=== PATIENT | male | born 1965 | race Caucasian/White ===

== ENCOUNTER → 2019-07-06 | Emergency (ER) | payer OTHER ==
[~2019-07-06] VITALS: Ht 170.2 cm; Wt 68.9 kg
--- NOTE | 2019-07-06 15:45 | NUR ---
BIBRA FOUND OUTSIDE 12/17 BECAME BELLIGERENT WHEN TOLD TO LEAVE, STRONG ETOH BREATH. PATIENT SLEEPY BUT AROUSABLE, BREATHING EVEN AND UNLABORED, NO SOB NOTED, NEEDS ATTENDED. KEPT COMFORTABLE.
--- NOTE | 2019-07-06 16:02 | NUR ---
urine collected and sent to lab
[2019-07-06 16:08] LABS: APPEARANCE,URINE Clear (CLEAR); BILIRUBIN,URINE Negative (NEGATIVE); BLOOD, URINE Negative Ery/uL (NEGATIVE); COLOR,URINE Yellow (YELLOW); KETONES,URINE Trace (NEGATIVE); LEUKOCYTE ESTERASE ,URINE Negative (NEGATIVE); NITRITE, URINE Negative (NEGATIVE); PH,URINE 5.5 (5.0-8.0); PROTEIN,URINE Negative (NEGATIVE); UGLUCOSE Negative (NEGATIVE); UROBILINOGEN,URINE 0.2 EU/dL (0.2)
[2019-07-06 16:27] LABS: RBC,URINE 0-2 /HPF (0-2); WBC,URINE 0-2 /HPF (0-3)
[2019-07-06 16:28] LABS: BACTERIA,URINE Few /HPF (None Seen); SQUAMOUS EPITHELIAL CELL,UR Few /HPF (None Seen)
[2019-07-06 16:34] LABS: BASOPHILS # (AUTO) 0.1 /CMM (0.0-0.2); EOSINOPHILS % (AUTO) 0.6 % (0.0-6.0); HEMATOCRIT 47 % (39-51); HEMOGLOBIN 15.6 g/dL (13.5-17.5); LYMPHOCYTES # (AUTO) 1.6 /CMM (0.8-4.8); LYMPHOCYTES % (AUTO) 20.7 % (20.0-44.0); MEAN CORPUSCULAR HGB CONC 34 g/dl (31.0-36.0); MEAN CORPUSCULAR VOLUME 98 fL (80-96); MONOCYTES # (AUTO) 0.5 /CMM (0.1-1.30); MONOCYTES % (AUTO) 6.5 % (2.0-12.0); NEUTROPHILS # (AUTO) 5.4 /CMM (1.8-8.9); NEUTROPHILS % (AUTO) 71.2 % (43.0-81.0); PLATELET COUNT (AUTO) 329 /CMM (150-450); RED BLOOD CELL COUNT(AUTO) 4.74 MIL/uL (4.5-6.0); WHITE BLOOD COUNT (AUTO) 7.6 K/uL (4.3-11.0)
[2019-07-06 16:44] LABS: CALCIUM, SERUM 8.9 mg/dL (8.5-10.1); CARBON DIOXIDE 25 mmol/L (21-32); CHLORIDE 106 mmol/L (98-107); GLUCOSE 83 mg/dL (74-106); SODIUM SERUM 147 mmol/L (136-145); UREA NITROGEN, BLOOD 9 mg/dL (7-18)
[2019-07-06 16:54] LABS: ACETAMINOPHEN < 2 ug/ml (10-30); ALANINE AMINOTRANSFERASE 34 U/L (12-78); ALBUMIN 3.4 g/dL (3.4-5.0); ALCOHOL, BLOOD 373 mg/dL (0-0); ALKALINE PHOSPHATASE 88 U/L (46-116); ASPARTATE AMINOTRANSFERASE 56 U/L (15-37); BILIRUBIN,DIRECT 0.1 mg/dL (0.0-0.2); BILIRUBIN,TOTAL 0.3 mg/dL (0.2-1.0); SALICYLATE < 2.8 mg/dL (2.8-20.0); TOTAL PROTEIN, SERUM 7.2 g/dL (6.4-8.2)
--- NOTE | 2019-07-06 17:00 | NUR ---
PATIENT AMBULATES TO RESTROOM, NO DISTRESS NOTED. VITALS STABLE.
[2019-07-06 17:24] VITALS: BP 133/76
== END | disposition home or self-care (01) ==
LOC: ER 15:19
DX: F10.129 Alcohol abuse with intoxication, unspecified (principal); F14.90 Cocaine use, unspecified, uncomplicated; Z60.2 Problems related to living alone; Y90.8 Blood alcohol level of 240 mg/100 ml or more
CPT/HCPCS: 36415; 80048; 80076; 80305; 80307; 80329; 81001; 85025; 99283; G0480; 81000-TC

== ENCOUNTER 2021-05-25 07:51 | Inpatient (IN) | payer OTHER ==
[~2021-05-25] VITALS: Ht 172.7 cm; Wt 85.3 kg
--- NOTE | 2021-05-25 07:51 | NUR ---
PT [address]IB[address] C/O NAUSEA/VOMTING STARTED LAST NIGHT. +ALCOHOL INTAKE YESTERDAY. PT IS AAOX4, NOT IN RESPIRATORY DISTRESS, HOOKED TO SHIP'S COOK, KEPT RESTED AND COMFORTABLE. WILL CONTINUE TO MONITOR.
--- NOTE | 2021-05-25 08:16 | NUR ---
SEEN AND EXAMINED BY .
[2021-05-25] MEDS ORDERED: ONDANSETRON HCL/PF 4 MG/2 ML VIAL ONE ×3 (08:18→10:26)
--- NOTE | 2021-05-25 08:20 | NUR ---
IV LINE ESTABLISHED BLOOD DRAWN AND SENT TO LAB.
[2021-05-25] MEDS ORDERED: IV NS 0.9% 500 ML BAG IV ONE (08:30)
[2021-05-25] MEDS ORDERED: ONDANSETRON HCL/PF 4 MG/2 ML VIAL IVP ONE ×2 (08:30→10:30)
[2021-05-25 08:34] LABS: RED BLOOD CELL COUNT(AUTO) 6.13 MIL/uL (4.5-6.0)
[2021-05-25 08:52] LABS: BASOPHILS # (AUTO) 0.2 K/uL (0.0-0.2); BASOPHILS % (AUTO) 0.7 % (0.0-2.0); HEMOGLOBIN 18.8 g/dL (13.5-17.5); LYMPHOCYTES # (AUTO) 1.6 K/uL (0.8-4.8); LYMPHOCYTES % (AUTO) 7.2 % (20.0-44.0); MEAN CORPUSCULAR HGB CONC 31 g/dl (31.0-36.0); MEAN CORPUSCULAR VOLUME 98 fL (80-96); MONOCYTES # (AUTO) 1.6 K/uL (0.1-1.30); MONOCYTES % (AUTO) 7.2 % (2.0-12.0); NEUTROPHILS # (AUTO) 18.5 K/uL (1.8-8.9); NEUTROPHILS % (AUTO) 84.9 % (43.0-81.0); PLATELET COUNT (AUTO) 439 K/uL (150-450); WHITE BLOOD COUNT (AUTO) 21.9 K/uL (4.3-11.0)
[2021-05-25 08:56] LABS: HEMATOCRIT 60 % (39-51)
[2021-05-25] MEDS ORDERED: IV NS 0.9% 1,000 ML BAG IV ONE ×2 (09:00→10:00)
--- NOTE | 2021-05-25 09:20 | NUR ---
PT IS WHEELED TO CT SCAN VIA [facility].
[2021-05-25 09:26] LABS: ALBUMIN 4.4 g/dL (3.4-5.0); BILIRUBIN,DIRECT 0.1 mg/dL (0.0-0.2); BILIRUBIN,TOTAL 0.4 mg/dL (0.2-1.0); CALCIUM, SERUM 9.1 mg/dL (8.5-10.1); CREATININE 2.1 mg/dL (0.6-1.3); POTASSIUM 4.7 mmol/L (3.5-5.1); TOTAL PROTEIN, SERUM 9.3 g/dL (6.4-8.2)
[2021-05-25] MEDS ORDERED: PIPERACILLIN /TAZOBACTAM 3.375 G in IV D5W 50 ML IV ONE (10:00)
[2021-05-25 10:17] LABS: ABG BASE EXCESS -22.8 mmol/L; ABG PCO2 21.8 mmHg (35.0-45.0); ABG PH 7.054 (7.350-7.450); ABG PO2 91.4 mmHg (75.0-100.0); COHb 0.3 % (0.5-1.5); MetHb 0.6 % (0.0-1.5); O2Hb 94.3 % (94.0-97.0); SITE, ABG Right Radial; VENT MODE, BG room air
[2021-05-25] MEDS ORDERED: MORPHINE SULFATE INJ 4 MG/ML DISP.SYRIN ONE (10:26)
--- NOTE | 2021-05-25 10:29 | NUR ---
SPOKED TO [facility] [employer] FOR MED POINT WILL CALL BACK FOR UPDATE.
[2021-05-25] MEDS ORDERED: MORPHINE SULFATE INJ 2 MG/ML DISP.SYRIN IV ONE (10:30)
--- NOTE | 2021-05-25 10:55 | NUR ---
[employer] WORKRO[employer] CLERK OF [facility] GAVE AUTH FOR ADMISSION.
[2021-05-25 11:14] LABS: LYMPHOCYTES % (MANUAL) 6 % (16-48); MONOCYTES % (MANUAL) 3 % (0-11.0); NEUTROPHILS % (MANUAL) 91 (42-76)
[2021-05-25] MEDS ORDERED: HYDROCODONE/APAP 10/325MG TABLET PO PRN (11:30)
[2021-05-25] MEDS ORDERED: ONDANSETRON HCL/PF 4 MG/2 ML VIAL IVP PRN (11:30)
[2021-05-25] MEDS ORDERED: MAGNESIUM HYDROXIDE 30 ML UDC PO PRN (11:30)
[2021-05-25] MEDS ORDERED: Z GUARD REMEDY 2 OZ OINT TP PRN (11:30)
[2021-05-25] MEDS ORDERED: ACETAMINOPHEN 325 MG TABLET PO PRN (11:30)
[2021-05-25] MEDS ORDERED: MAG HYDROX/AL HYDROX/SIMETH 30 ML UDC PO PRN (11:30)
--- NOTE | 2021-05-25 11:31 | NUR ---
called nursing sup regarding pt bed
--- NOTE | 2021-05-25 11:58 | NUR ---
ROOM 111-2
[2021-05-25] MEDS: PANTOPRAZOLE 40 MG VIAL IV SCH ×2 (12:00→21:27)
--- NOTE | 2021-05-25 12:02 | NUR ---
REPORT GIVEN TO MONY BARRERA FOR EMELI.
[2021-05-25] MEDS ORDERED: PANTOPRAZOLE 40 MG VIAL ONE (12:21)
--- NOTE | 2021-05-25 13:15 | NUR ---
RN ADMITTING NOTE PT IN ROOM 111-2. ORIENTED TO HOSPITAL AND ROOM, TAUGHT HOW TO USE CALL LIGHT. BED IN SAFE POSITION. SIDE RAILS RAISED. ADMISSION ASSESSMENTS TO BE DONE. NO SKIN ISSUES PRESENT. NO S/S OF DISTRESS. WILL CONTINUE TO MONITOR.
[2021-05-25 13:45] VITALS: BP 130/78
[2021-05-25] MEDS: PIPERACILLIN /TAZOBACTAM 3.375 G in IV D5W 50 ML IV SCH ×3 (14:13→23:54)
[2021-05-25 16:00] VITALS: BP 136/84
--- NOTE | 2021-05-25 19:10 | NUR ---
RN NOTES RECEIVED PATIENT IN BED WATCHING TV. A/O X4 ABLE TO MAKE NEEDS KNOWN. PATIENT NOT IN DISTRESS NO SOB NOTED AT THIS TIME. WITH IV ACCESS AT R HAND #20 PATENT FLUSHES WELL. WITH ONGOING IVF OF NS @ 100CC/HR TOLERATING WELL. VITAL SIGNS TAKEN AND RECORDED. ALL SAFETY MEASURES IN PLACE. HOB ELEVATED, CALL LIGHT WITHIN REACH. WILL CLOSELY MONITOR THE PATIENT.
--- NOTE | 2021-05-25 19:46 | NUR ---
RN CLOSING NOTE REPORT GIVEN TO NIGHT NURSE FOR EMELI
[2021-05-25 20:00] VITALS: BP 132/81
[2021-05-25] MEDS ORDERED: SODIUM BICARBONATE SYR 50 MEQ/50 ML DISP.SYRIN IV ONE (20:00)
[2021-05-25] MEDS ORDERED: LORAZEPAM INJ 2 MG/ML VIAL IV PRN (20:30)
--- NOTE | 2021-05-25 20:50 | NUR ---
RN NOTES CALLED RT FOR ABG ORDERED. WILL CONTINUE TO MONITOR. PATIENT STILL ON SINUS RHYTHM.
[2021-05-25 22:52] LABS: ABG BASE EXCESS 1.6 mmol/L; ABG OXYGEN SATURATION 94.7 % (92.0-98.5); ABG PCO2 38.2 mmHg (35.0-45.0); ABG PH 7.443 (7.350-7.450); ABG PO2 69.3 mmHg (75.0-100.0); AaDO2 34.7 mmHg; COHb 0.6 % (0.5-1.5); MetHb 0.2 % (0.0-1.5); O2Hb 93.9 % (94.0-97.0); SITE, ABG Right Radial; VENT MODE, BG RA
--- NOTE | 2021-05-25 23:00 | NUR ---
RT abg done. results given to tony taylor
[2021-05-26] VITALS: BP 113/71
[2021-05-26] MEDS: IV NS 0.9% 1,000 ML IV PRN ×2 (02:48→14:23)
[2021-05-26 04:00] VITALS: BP 107/65
[2021-05-26] MEDS: PIPERACILLIN /TAZOBACTAM 3.375 G in IV D5W 50 ML IV SCH ×3 (05:23→17:37)
--- NOTE | 2021-05-26 06:51 | NUR ---
RN NOTES PATIENT REMAINS STABLE THE SHIFT NO SOB NO DISTRESS. ALL DUE MEDS GIVEN ORDERED. PATIENT HAS NO EPISODE OF NAUSEA OR VOMITING DURING THIS SHIFT. STILL ON CONTINOUS IV NS @100CC/HR TOLERATING WELL. ALL SAFETY MEASURES IN PLACE AT ALL TIMES. CALL LIGHT WITHIN REACH. HOB ELEVATED. BED ON LOWEST POSITION AND LOCKED. PATIENT IS FOR MRI OF SPINE WITH OUT CONTRAST CONSENT @ CHART. PATIENT STILL ON NPO BUT OKAY WITH ICE CHIPS. FREQUENT VISUAL MONITORING RENDERED. WILL CONTINUE TO MONITOR.
[2021-05-26 07:18] LABS: BASOPHILS # (AUTO) 0.1 K/uL (0.0-0.2); BASOPHILS % (AUTO) 0.7 % (0.0-2.0); EOSINOPHILS % (AUTO) 0.4 % (0.0-6.0); HEMATOCRIT 41 % (39-51); LYMPHOCYTES % (AUTO) 10.2 % (20.0-44.0); MEAN CORPUSCULAR HGB CONC 34 g/dl (31.0-36.0); MEAN CORPUSCULAR VOLUME 92 fL (80-96); MONOCYTES # (AUTO) 0.7 K/uL (0.1-1.30); MONOCYTES % (AUTO) 7.3 % (2.0-12.0); NEUTROPHILS # (AUTO) 7.8 K/uL (1.8-8.9); NEUTROPHILS % (AUTO) 81.4 % (43.0-81.0); PLATELET COUNT (AUTO) 194 K/uL (150-450); RED BLOOD CELL COUNT(AUTO) 4.44 MIL/uL (4.5-6.0); WHITE BLOOD COUNT (AUTO) 9.6 K/uL (4.3-11.0)
[2021-05-26 07:49] LABS: ALBUMIN 2.8 g/dL (3.4-5.0); BILIRUBIN,DIRECT 0.2 mg/dL (0.0-0.2); BILIRUBIN,TOTAL 0.8 mg/dL (0.2-1.0); CALCIUM, SERUM 7.5 mg/dL (8.5-10.1); CREATININE 1.2 mg/dL (0.6-1.3); MAGNESIUM 1.9 mg/dL (1.8-2.4); PHOSPHORUS 2.5 mg/dL (2.5-4.9); POTASSIUM 3.6 mmol/L (3.5-5.1); TOTAL PROTEIN, SERUM 5.8 g/dL (6.4-8.2)
[2021-05-26 08:00] VITALS: BP 120/80
[2021-05-26] MEDS: PANTOPRAZOLE 40 MG VIAL IV SCH ×2 (08:36→21:01)
--- NOTE | 2021-05-26 09:56 | NUR ---
RN NOTE PT STATED HE POOPED HIS R KNEE WHILE REPOSITIONING IN BED. PAIN 2/10. ABLE TO MOVE R KNEE WITH LIMITED RANGE. KEO STEVENS NOTIFIED. R KNEE XRAY ORDERED.
[2021-05-26 12:00] VITALS: BP 124/73
[2021-05-26] MEDS ORDERED: HYDROCODONE/APAP 10/325MG TABLET PO PRN (14:00)
[2021-05-26] MEDS ORDERED: HYDROMORPHONE 1 MG/1 ML DISP.SYRIN IV PRN (14:00)
--- NOTE | 2021-05-26 14:00 | NUR ---
RN NOTE PATIENT SEEN BY KEO STEVENS, UPDATED REGARDING PATIENT CURRENT CONDITION.
[2021-05-26 16:00] VITALS: BP 126/73
--- NOTE | 2021-05-26 19:00 | NUR ---
EN NOTE RN NOTE PT AWAKE, ALERT/OX4. IN NO ACUTE DISTRESS. IVF INFUSING WELL TO LEFT HAND. SR ON MONITOR. DIET ADVANCED TO CLEARS. TOLERATING WELL. NO S/SX OF GIB REPORTED. SAFETY MEASURES OBSERVED. CALL LIGHT WITHIN REACH. WILL ENDORSE CARE TO NOC RN.
[2021-05-26 20:00] VITALS: BP 108/64
[2021-05-27] VITALS (7 sets, daily range): BP systolic 108–146; BP diastolic 68–90
[2021-05-27] MEDS: PIPERACILLIN /TAZOBACTAM 3.375 G in IV D5W 50 ML IV SCH ×5 (00:56→23:27)
[2021-05-27] MEDS: IV NS 0.9% 1,000 ML IV PRN (07:25)
--- NOTE | 2021-05-27 07:25 | NUR ---
TONGER OPENING NOTES RECEIVED PT ON BED, AWAKE, A/O X4, ABLE TO MAKE NEEDS KNOWN. NO SIGNS OF ACUTE DISTRESS NOTED. ON ROOM AIR, TOLERATING WELL, BREATHING EVEN AND UNLABORED. ON TELE MONITOR SB @57. IV ACCESS ON LEFT HAND INTACT AND PATENT. NO C/O PAIN OR DISCOMFORT AT THIS TIME. SAFETY MEASURES IN PLACE. BED LOCKED AND IN LOWEST POSITION. SR UP X2, CALL LIGHT PLACED WITHIN EASY REACH. WILL CONTINUE TO MONITOR.
[2021-05-27] MEDS: PANTOPRAZOLE 40 MG VIAL IV SCH ×2 (08:15→21:35)
[2021-05-27 10:29] LABS: BASOPHILS # (AUTO) 0.1 K/uL (0.0-0.2); BASOPHILS % (AUTO) 1.1 % (0.0-2.0); EOSINOPHILS % (AUTO) 1.3 % (0.0-6.0); HEMATOCRIT 38 % (39-51); LYMPHOCYTES # (AUTO) 0.8 K/uL (0.8-4.8); LYMPHOCYTES % (AUTO) 12.3 % (20.0-44.0); MEAN CORPUSCULAR HGB CONC 34 g/dl (31.0-36.0); MEAN CORPUSCULAR VOLUME 92 fL (80-96); MONOCYTES # (AUTO) 0.5 K/uL (0.1-1.30); MONOCYTES % (AUTO) 7.1 % (2.0-12.0); NEUTROPHILS % (AUTO) 78.2 % (43.0-81.0); PLATELET COUNT (AUTO) 164 K/uL (150-450); RED BLOOD CELL COUNT(AUTO) 4.14 MIL/uL (4.5-6.0); WHITE BLOOD COUNT (AUTO) 6.5 K/uL (4.3-11.0)
[2021-05-27 10:37] LABS: CALCIUM, SERUM 7.7 mg/dL (8.5-10.1); POTASSIUM 3.2 mmol/L (3.5-5.1)
--- NOTE | 2021-05-27 13:57 | NUR ---
RN NOTES SEEN AND EXAMINED BY KEO STEVENS NP WITH ORDER TO UPGRADE DIET, CARRIED OUT.
[2021-05-27] MEDS ORDERED: POTASSIUM CHLORIDE 20 MEQ POWDER PACKET PO ONE (15:30)
--- NOTE | 2021-05-27 18:54 | NUR ---
MS RN CLOSING NOTES PT ON BED, AWAKE, A/O X4, ABLE TO MAKE NEEDS KNOWN. NO SIGNS OF ACUTE DISTRESS NOTED. ON ROOM AIR, TOLERATING WELL, BREATHING EVEN AND UNLABORED. IV ACCESS ON LEFT HAND #20G SL, INTACT AND PATENT. NO C/O PAIN OR DISCOMFORT AT THIS TIME. ALL DUE MEDS GIVEN, TOLERATED WELL. SAFETY MEASURES IN PLACE. BED LOCKED AND IN LOWEST POSITION. SR UP X2, CALL LIGHT PLACED WITHIN EASY REACH. WILL ENDORSE TO NEXT SHIFT.
--- NOTE | 2021-05-27 19:30 | NUR ---
RN OPENING NOTES RECEIVED PATIENT IN BED ALERT, ORIENTED X4, VERBALLY RESPONSIVE. NO SOB, NO CHEST CONGESTION, BREATHING EVEN AND UNLABORED. IV ACCESS ON LT HAND #20 G INTACT AND PATENT. NO S/S OF INFILTRATIONS. ON ROOM AIR. NO C/O PAIN OR DISCOMFORT. NO ACUTE DISTRESS. AMBULATORY WITH STEADY GAIT. ALL SAFETY MEASURES ON PLACE. BED IN LOW POSITION AND LOCKED. PLACE CALL LIGHT WITH IN REACH. WILL CONTINUE TO MONITOR
[2021-05-28 02:44] LABS: OCCULT BLOOD STOOL NEGATIVE (NEGATIVE)
[2021-05-28 04:00] VITALS: BP 139/88
[2021-05-28 04:13] VITALS: BP 139/88
[2021-05-28] MEDS: PIPERACILLIN /TAZOBACTAM 3.375 G in IV D5W 50 ML IV SCH ×2 (05:49→11:11)
--- NOTE | 2021-05-28 06:30 | NUR ---
RN CLOSING NOTES: PATIENT IN BED ALERT, ORIENTED X4, VERBALLY RESPONSIVE. BREATHING EVEN AND UNLABORED. ALL DUE MEDS GIVEN ORDER. IV ACCESS ON LT HAND #20 G INTACT AND PATENT. NO S/S OF INFILTRATIONS. ON ROOM AIR, O2 SAT 98%. NO C/O PAIN OR DISCOMFORT. NO ACUTE DISTRESS. AMBULATORY WITH STEADY GAIT. ALL SAFETY MEASURES ON PLACE. BED IN LOW POSITION AND LOCKED. PLACE CALL LIGHT WITH IN REACH. WILL ENDORSE TO MORNING SHIFT NURSE.
[2021-05-28 06:45] LABS: POTASSIUM 3.3 mmol/L (3.5-5.1)
[2021-05-28 07:07] LABS: BASOPHILS # (AUTO) 0.1 K/uL (0.0-0.2); BASOPHILS % (AUTO) 1.9 % (0.0-2.0); EOSINOPHILS % (AUTO) 2.5 % (0.0-6.0); HEMATOCRIT 39 % (39-51); HEMOGLOBIN 13.3 g/dL (13.5-17.5); LYMPHOCYTES % (AUTO) 16.1 % (20.0-44.0); MEAN CORPUSCULAR HGB CONC 34 g/dl (31.0-36.0); MEAN CORPUSCULAR VOLUME 92 fL (80-96); MONOCYTES # (AUTO) 0.5 K/uL (0.1-1.30); MONOCYTES % (AUTO) 7.4 % (2.0-12.0); NEUTROPHILS # (AUTO) 4.7 K/uL (1.8-8.9); NEUTROPHILS % (AUTO) 72.1 % (43.0-81.0); PLATELET COUNT (AUTO) 183 K/uL (150-450); RED BLOOD CELL COUNT(AUTO) 4.25 MIL/uL (4.5-6.0); WHITE BLOOD COUNT (AUTO) 6.4 K/uL (4.3-11.0)
--- NOTE | 2021-05-28 08:03 | NUR ---
RN OPENING NOTES RECEIVED PATIENT IN BED ALERT, ORIENTED X4, VERBALLY RESPONSIVE. NO SOB, NO CHEST CONGESTION, BREATHING EVEN AND UNLABORED. IV ACCESS ON LT HAND #20 G INTACT AND PATENT. NO S/S OF INFILTRATIONS. ON ROOM AIR. NO C/O PAIN OR DISCOMFORT. NO ACUTE DISTRESS. AMBULATORY WITH STEADY GAIT. ALL SAFETY MEASURES RENDERED. BED IN LOWEST POSITION AND LOCKED. CALL LIGHT WITHIN REACH. WILL CONTINUE TO MONITOR.
[2021-05-28] MEDS: PANTOPRAZOLE 40 MG VIAL IV SCH (08:26)
[2021-05-28] MEDS ORDERED: POTASSIUM CHLORIDE 20 MEQ POWDER PACKET PO SCH (10:00)
[2021-05-28 12:00] VITALS: BP 112/82
--- NOTE | 2021-05-28 13:52 | NUR ---
DC NOTES PT DC'S TO HOME. BROTHER PICKED UP PT. DC INSTRUCTIONS GIVEN AND EXPLAINED TO PT. VERBALIZED UNDERSTANDING. ALL PAPERWORK SIGNED AND COMPLETED. ALL BELONGINGS SENT. IV REMOVED, NO COMPLICATIONS NOTED. PT LEFT IN STABLE CONDITION.
--- NOTE | 2021-05-28 14:34 | NUR ---
SS Consult: SS consult for homeless, alcohol abuse. Pt. Is a 55-year-old male. Pt. demonstrates adequate insight to the reason for hospitalization. Per pt., he was brought to hospital by ambulance. Pt. was oriented x3, alert, and cooperative. During interview, pt. was capable of following directions and made appropriate eye-contact. Pt.s speech was at a normal rate. Pt.s mood was elevated. SW explored pt.s hx of mental health and substance abuse. Pt. reported no hx of mental health, suicidal or homicidal. Pt. denies auditory hallucinations, visual hallucinations, paranoia, or delusions. Per pt., he drinks alcohol [vodka] everyday and uses marijuana. Pt. has no intension of quitting nor want to. SW explored pt.s living situation. Per pt., he lives with his brother Jordan [Pt. does not know address]. Per pt., he reports having adequate support from his brother. Pt. mentioned that he is working with [employer] program to get housing. Plan: SW provided available resources and pt. denied interest at this time. Once discharge, per pt., he will return to his brothers house [pt. does not know address].
== END 2021-05-28 14:00 | disposition home or self-care (01) | DRG 720 ==
LOC: ER 07:57 → TRANSITION 11:46 → TELE 12:47 → TELE-TD 12:51 → TELE1 05-26 20:03 → MEDSG1 05-27 14:48
PROVIDERS: ADMIT Nurse Practitioner Acute Care; ATTEND Nurse Practitioner Acute Care
DX: A41.9 Sepsis, unspecified organism (principal); N17.0 Acute kidney failure with tubular necrosis; E87.2 Acidosis; D75.839 Thrombocytosis, unspecified; E86.0 Dehydration; K21.9 Gastro-esophageal reflux disease without esophagitis; Z59.00 Homelessness unspecified; F12.90 Cannabis use, unspecified, uncomplicated; Z20.822 Contact with and (suspected) exposure to COVID-19; F10.10 Alcohol abuse, uncomplicated; E87.6 Hypokalemia; Y90.2 Blood alcohol level of 40-59 mg/100 ml; F17.210 Nicotine dependence, cigarettes, uncomplicated; K57.30 Diverticulosis of large intestine without perforation or abscess without bleeding
CPT/HCPCS: 36415; 36600; 71045-TC; 73564-TC; 80048-TC; 80076-TC; 82272-TC; 82550-TC; 82803-TC; 83605-TC; 83690-TC; 83735-TC; 84100-TC; 85025-TC; 87040-TC; 87081-TC; C9113; C9803; G0378; G0480; J2270; J2405; J2543; J3490; J7030; J7060

== ENCOUNTER 2021-09-06 19:24 | Emergency (ER) | payer OTHER ==
[~2021-09-06] VITALS: Ht 172.7 cm; Wt 77.1 kg
--- NOTE | 2021-09-06 19:48 | NUR ---
PATIENT BIBRA [address] C/O ETOH WITH BUMP TO TOP OF RIGHT EYE. PATIENT IS A/O, RR EVEN AND UNLABORED, NO SOB NOTED, PATIENT TAKEN TO ER BED 13. PATIENT CONNECTED TO CARDIAC MONIOTR AND POX. WILL CONTINUE TO MONITOR.
--- NOTE | 2021-09-06 19:56 | NUR ---
KELSEY QURESHI AT BEDSIDE.
--- NOTE | 2021-09-06 20:28 | NUR ---
PATIENT TAKEN TO CT
[2021-09-07] MEDS ORDERED: ONDANSETRON 4 MG TAB.RAPDIS ONE (05:35)
--- NOTE | 2021-09-07 05:40 | NUR ---
Patient discharged to home in stable condition. Written and verbal after care instructions given. Patient verbalizes understanding of instruction. PT ambulatory with a steady gait
[2021-09-07 05:41] VITALS: BP 121/68
[2021-09-07] MEDS ORDERED: ONDANSETRON 4 MG TAB.RAPDIS SL ONE (06:00)
== END 2021-09-07 05:41 | disposition home or self-care (01) ==
LOC: ER 19:24
DX: S00.01XA Abrasion of scalp, initial encounter (principal); F10.129 Alcohol abuse with intoxication, unspecified; Z60.2 Problems related to living alone; W18.30XA Fall on same level, unspecified, initial encounter; Y93.89 Activity, other specified; Y92.410 Unspecified street and highway as the place of occurrence of the external cause; Y99.8 Other external cause status; Y90.8 Blood alcohol level of 240 mg/100 ml or more
CPT/HCPCS: 36415; 70450; 72125; 80320; 99284; Q0162; G0480